=== PATIENT | female | born 1995 | race Two or more races ===

== ENCOUNTER 2016-03-28 17:25 | Emergency (ER) | payer OTHER | END 2016-03-28 19:43 | disposition home or self-care (01) | LOC: ED 17:25 | DX: O20.0 Threatened abortion (principal); O26.891 Other specified pregnancy related conditions, first trimester; B86 Scabies; Z3A.10 10 weeks gestation of pregnancy ==

== ENCOUNTER 2016-03-28 20:27 | Emergency (ER) | payer OTHER | END 2016-03-28 22:30 | disposition home or self-care (01) | LOC: ED 20:27 | DX: O03.9 Complete or unspecified spontaneous abortion without complication (principal) ==